=== PATIENT | female | born 1970 | race Caucasian/White ===

== ENCOUNTER 2019-10-31 14:33 | Observation (INO) | payer MEDICARE ==
[~2019-10-31] VITALS: Ht 160 cm; Wt 74.8 kg
[2019-10-31] MEDS ORDERED: SODIUM CHLORIDE FLUSH 10ML SYR IVF ONE (15:00)
[2019-10-31 15:26] LABS: BASOPHILS # (AUTO) 0.05 x10^3/uL (0-0.1); BASOPHILS % (AUTO) 1 % (0-1); EOSINOPHILS # (AUTO) 0.16 x10^3/uL (0-0.4); EOSINOPHILS % (AUTO) 3 % (1-7); LYMPHOCYTES # (AUTO) 1.79 x10^3/uL (1-3.4); LYMPHOCYTES % (AUTO) 33 % (22-44); MD NO; MEAN CORPUSCULAR HGB CONC 33.8 g/dL (32.4-35.8); MEAN CORPUSCULAR VOLUME 85.7 fL (80-100); MEAN PLATELET VOLUME 7.7 fL (7.4-10.4); MONOCYTES # (AUTO) 0.75 x10^3/uL (0.2-0.8); MONOCYTES % (AUTO) 14 % (2-9); NEUTROPHILS # (AUTO) 2.69 x10^3/uL (1.8-6.8); NEUTROPHILS % (AUTO) 50 % (42-75); PLATELET COUNT 297 x10^3/uL (130-400); RED BLOOD COUNT 4.99 x10^6/uL (3.82-5.3); RED CELL DISTRIBUTION WIDTH 13.8 % (9.6-15.2)
[2019-10-31 15:33] LABS: ANION GAP 8 mmol/L (5-15); CALCIUM 9.3 mg/dL (8.5-10.1); CHLORIDE 108 mmol/L (98-107); CREATININE 0.86 mg/dL (0.55-1.02)
[2019-10-31 15:34] LABS: ALANINE AMINOTRANSFERASE 29 U/L (12-78); ALBUMIN 4.1 g/dL (3.4-5.0)
[2019-10-31 15:38] LABS: ALKALINE PHOSPHATASE 89 U/L (45-117); BILIRUBIN,TOTAL 0.3 mg/dL (0.2-1.0); TOTAL PROTEIN 6.8 g/dL (6.4-8.2); TROPONIN I < 0.015 ng/mL (0.000-0.045)
[2019-10-31] MEDS ORDERED: NITROGLYCERIN OINT 2%, 1GM TP ONE ×2 (16:29→16:30)
[2019-10-31] MEDS ORDERED: ASPIRIN 81 MG TABLET CHEW ONE (16:29)
[2019-10-31] MEDS ORDERED: ASPIRIN 81 MG TABLET CHEW PO ONE (16:30)
--- NOTE | 2019-10-31 16:41 | NUR ---
PT STATES THAT SHE WAS GIVEN 4 BABY ASPIRIN WHILE AT URGENT CARE THIS MORNING, ASA HELD.
[2019-10-31 17:23] LABS: CHOL/HDL RATIO 5.9; LDL/HDL RATIO 3.9 (0.5-3.0)
--- NOTE | 2019-10-31 17:23 | NUR ---
REPORT TO ERIN CASTRO.
[2019-10-31] MEDS ORDERED: BACLOFEN 10 MG TABLET PO PRN (17:30)
[2019-10-31] MEDS ORDERED: morphine SULFATE 10 MG/ML, 1ML IVPush PRN (17:30)
[2019-10-31] MEDS ORDERED: NITROGLYCERIN 0.4 MG BOTTLE (25 TABS) SL PRN (17:30)
[2019-10-31] MEDS ORDERED: morphine SULFATE 10 MG/ML, 1ML IV PRN (17:30)
[2019-10-31] MEDS ORDERED: NITROGLYCERIN 0.4 MG/SPRAY SL PRN (17:30)
[2019-10-31 18:00] VITALS: BP 118/75
[2019-10-31] MEDS: ACETAMINOPHEN 325 MG TABLET PO PRN (18:21)
[2019-10-31] MEDS: LIDODERM 5% PATCH TD SCH (18:21)
[2019-10-31 18:58] VITALS: BP 112/71
[2019-10-31] MEDS ORDERED: SERT-238 PO (20:31)
[2019-10-31] MEDS ORDERED: PROP10TA51 PO (20:31)
[2019-10-31] MEDS ORDERED: LAMO150T4 PO (20:31)
[2019-10-31] MEDS: SODIUM CHLORIDE FLUSH 10ML SYR IVF SCH (20:35)
[2019-10-31 22:54] LABS: TROPONIN I < 0.015 ng/mL (0.000-0.045)
[2019-11-01 01:49] VITALS: BP 104/66
[2019-11-01 04:53] LABS: TROPONIN I < 0.015 ng/mL (0.000-0.045)
[2019-11-01] MEDS: ASPIRIN 325 MG TABLET EC PO SCH (06:31)
[2019-11-01] MEDS: SODIUM CHLORIDE FLUSH 10ML SYR IVF SCH ×2 (07:49→21:00)
[2019-11-01 08:45] VITALS: BP 111/77
[2019-11-01] MEDS: LAMOTRIGINE 100 MG TABLET PO SCH ×2 (08:57→21:29)
[2019-11-01] MEDS: ACETAMINOPHEN 325 MG TABLET PO PRN ×2 (08:57→18:48)
[2019-11-01] MEDS: SERTRALINE 100MG TABLET PO SCH (08:57)
[2019-11-01 09:53] VITALS: BP 111/78
[2019-11-01] MEDS: SODIUM CHLORIDE 0.9% 1,000 ML IV SCH (11:21)
[2019-11-01 14:00] VITALS: BP 113/73
[2019-11-01] MEDS ORDERED: OMNIPAQUE 350 MG/ML, 100ML BOTTLE ONE (15:52)
[2019-11-01] MEDS: LIDODERM 5% PATCH TD SCH (16:19)
[2019-11-01] MEDS: ONDANSETRON 2MG/ML, 2ML IVPush PRN (16:19)
[2019-11-01] MEDS: PANTOPRAZOLE 40 MG IV IVPush SCH (17:01)
[2019-11-01 20:42] VITALS: BP 90/55
[2019-11-01] MEDS ORDERED: ATORVASTATIN 40 MG TABLET PO SCH (21:00)
[2019-11-02] MEDS: SODIUM CHLORIDE 0.9% 1,000 ML IV SCH ×2 (01:26→11:55)
[2019-11-02 01:27] VITALS: BP 105/65
[2019-11-02] MEDS: ASPIRIN 325 MG TABLET EC PO SCH (05:07)
[2019-11-02] MEDS: ACETAMINOPHEN 325 MG TABLET PO PRN (05:07)
[2019-11-02] MEDS: PANTOPRAZOLE 40 MG IV IVPush SCH (05:07)
[2019-11-02] MEDS: SERTRALINE 100MG TABLET PO SCH (07:29)
[2019-11-02] MEDS: LAMOTRIGINE 100 MG TABLET PO SCH (07:29)
[2019-11-02] MEDS: ONDANSETRON 2MG/ML, 2ML IVPush PRN (07:29)
[2019-11-02] MEDS: SODIUM CHLORIDE FLUSH 10ML SYR IVF SCH (07:31)
[2019-11-02 07:41] VITALS: BP 109/69
[2019-11-02] MEDS ORDERED: BUTALB/APAP/CAFFEINE 50MG/325MG/40MG PO ONE (11:00)
[2019-11-02] MEDS ORDERED: OMEP-110 PO (12:11)
[2019-11-02] MEDS ORDERED: ACET325T26 PO (12:11)
[2019-11-02] MEDS ORDERED: ONDA4TAB7 PO (12:11)
[2019-11-02 13:54] VITALS: BP 110/60
[2019-11-02] MEDS ORDERED: ASPI-515 PO (14:25)
== END 2019-11-02 15:00 | disposition home or self-care (01) ==
LOC: ED 16:04 → EDIP 16:05 → INTOOBSV 16:05 → SUATTDRO 16:47 → ED 17:33 → 5SO 18:04 → DCLOUNGE 11-02 14:42
PROVIDERS: ADMIT Hospitalist; ATTEND Internal Medicine
DX: R07.89 Other chest pain (principal); R06.00 Dyspnea, unspecified; F41.1 Generalized anxiety disorder; F31.9 Bipolar disorder, unspecified; F43.10 Post-traumatic stress disorder, unspecified; R51 Headache; H40.20X0 Unspecified primary angle-closure glaucoma, stage unspecified; Z90.710 Acquired absence of both cervix and uterus
CPT/HCPCS: 36415; 71045; 71275; 78452; 80053; 80061; 82962; 83880; 84484; 85025; 85379; 93005; 93017; 93306; 96374; 96375; 96376; 99285; A9502; C9113; G0378; J2270; J2405; J7030; Q9967